=== PATIENT | female | born 1965 | race African-American/Black ===

== ENCOUNTER 2018-01-15 04:48 | Emergency (ER) | payer BC ==
[2018-01-15 04:58] VITALS: BP 127/84
--- NOTE | 2018-01-15 07:49 | EDM.PDOC ---
ED HPI GENERAL MEDICAL PROBLEM - General Chief Complaint: ENT Problem Stated Complaint: EAR BLEEDING Time Seen by Provider: 01/15/18 05:00 Source of Information: Reports: Patient - History of Present Illness Onset: Today - Related Data Allergies Allergy/AdvReac Type Severity Reaction Status Date / Time latex Allergy Itching Verified 01/15/18 04:59 Home Meds: Home Meds Acetaminophen/oxyCODONE [Percocet 325-5 MG] 2 tab PO Q4H PRN #30 tablet [Rx] Docusate Sodium [Colace] 100 mg PO BID PRN #30 cap 07/22/14 [Rx] Ibuprofen [Motrin] 600 mg PO Q4H PRN #30 tablet 07/22/14 [Rx] Aspirin 1 tab PO DAILY 01/15/18 [History] Dulaglutide [Trulicity] 1.5 mg SQ WEEKLY 01/15/18 [History] SitaGLIPtin [Januvia] 50 mg PO BID 01/15/18 [History] Past Medical History Cardiovascular History: Reports: High Cholesterol 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: Endocrine/Metabolic History: Reports: IDDM - Past Surgical History Female Surgical History: Reports: Section Social & Family History - Tobacco Use Smoking Status *Q: Never Smoker - Caffeine Use Caffeine Use: Reports: None - Recreational Drug Use Recreational Drug Use: No ED ROS ENT - Review of Systems Review Of Systems: See Below Constitutional: Reports: No Symptoms HEENT: Reports: No Symptoms Respiratory: Reports: No Symptoms Endocrine: Reports: No Symptoms GI/Abdominal: Reports: No Symptoms : Reports: No Symptoms Musculoskeletal: Reports: No Symptoms Skin: Reports: No Symptoms Neurological: Reports: No Symptoms Psychiatric: Reports: No Symptoms Hematologic/Lymphatic: Reports: No Symptoms Immunologic: Reports: No Symptoms ED EXAM, ENT - Physical Exam Exam: See Below Course - Vital Signs Last Recorded V/S: Last Vital Signs Temp 37.6 C 01/15/18 04:54 Pulse 107 H 01/15/18 04:54 Resp 18 01/15/18 04:54 BP 127/84 01/15/18 04:54 Pulse Ox 98 01/15/18 04:54 - Orders/Labs/Meds Labs: Laboratory Tests 01/15/18 01/15/18 01/15/18 Range/Units 05:00 05:00 05:00 WBC 9.26 (3.98-10.04) K/mm3 RBC 4.87 (3.98-5.22) M/mm3 Hgb 13.4 (11.2-15.7) gm/L Hct 39.4 (34.1-44.9) % MCV 80.9 (79.4-94.8) fl MCH 27.5 (25.6-32.2) pg MCHC 34.0 (32.2-35.5) g/dl RDW Std Deviation 40.9 (36.4-46.3) fL Plt Count 391 H (182-369) K/mm3 MPV 9.4 (9.4-12.3) fl Neut % (Auto) 53.4 (34.0-71.1) % Lymph % (Auto) 39.2 (19.3-51.7) % [place] % (Auto) 6.3 (4.7-12.5) % Eos % (Auto) 0.6 L (0.7-5.8) Baso % (Auto) 0.2 (0.1-1.2) % Neut # (Auto) 4.94 (1.56-6.13) K/mm3 Lymph # (Auto) 3.63 (1.18-3.74) K/mm3 [place] # (Auto) 0.58 H (0.24-0.36) K/mm3 Eos # (Auto) 0.06 (0.04-0.36) K/mm3 Baso # (Auto) 0.02 (0.01-0.08) K/mm3 PT 10.6 (9.5-12.1) SECONDS INR 0.97 APTT 27 (24-31) SECONDS POC Glucose (70-105) mg/dL 01/15/18 Range/Units 05:22 WBC (3.98-10.04) K/mm3 RBC (3.98-5.22) M/mm3 Hgb (11.2-15.7) gm/L Hct (34.1-44.9) % MCV (79.4-94.8) fl MCH (25.6-32.2) pg MCHC (32.2-35.5) g/dl RDW Std Deviation (36.4-46.3) fL Plt Count (182-369) K/mm3 MPV (9.4-12.3) fl Neut % (Auto) (34.0-71.1) % Lymph % (Auto) (19.3-51.7) % [place] % (Auto) (4.7-12.5) % Eos % (Auto) (0.7-5.8) Baso % (Auto) (0.1-1.2) % Neut # (Auto) (1.56-6.13) K/mm3 Lymph # (Auto) (1.18-3.74) K/mm3 [place] # (Auto) (0.24-0.36) K/mm3 Eos # (Auto) (0.04-0.36) K/mm3 Baso # (Auto) (0.01-0.08) K/mm3 PT (9.5-12.1) SECONDS INR APTT (24-31) SECONDS POC Glucose 124 H (70-105) mg/dL Departure - Departure Time of Disposition: 07:37 Disposition: Home, Self-Care 01 Condition: Good Clinical Impression: Laceration of ear - Discharge Information *PRESCRIPTION DRUG MONITORING PROGRAM REVIEWED*: Not Applicable *COPY OF PRESCRIPTION DRUG MONITORING REPORT IN PATIENT DINO: Not Applicable Instructions: General Headache Without Cause, Laceration Care, Adult Referrals: PCP,Not In Area [Primary Care Provider] - Forms: ED Department Discharge Additional Instructions: May resume usual activity. Follow up with primary care physician as needed. Return to ER if symptoms worsen.
--- NOTE | 2018-01-15 12:33 | ER ---
REASON FOR EMERGENCY ROOM ADMISSION: Bleeding from left ear. HISTORY: This 52-year-old woman awoke in the middle of the night with a sensation of something wet on the left side of her ear. She got up to go to the bathroom and came back and saw approximately a 50 cent size spot of blood on her pillow. She did not experience any pain and has no history of ear problems whatsoever except perhaps the otitis media as a child. She denies any trauma or the use of Q-tips or anything. She went back to sleep and turned her pillow over and when she woke up again this morning, she had another spot of blood on her pillow and was concerned that the blood was coming from her ear. Because this was alarming to her, she came to the emergency room to have it checked out. The patient denies any headache or discomfort, and as mentioned above, there has not been any instrumentation done on her ear. PAST MEDICAL HISTORY: Reviewed. See EMR. She has history of type 2 diabetes, for which she takes Januvia and Trulicity. She also takes aspirin and ibuprofen as needed. ALLERGIES: Latex. REVIEW OF SYSTEMS: All pertinent positives and negatives as listed in the HPI. PHYSICAL EXAMINATION: GENERAL: Reveals a pleasant woman in no acute distress. VITAL SIGNS: Her blood pressure is 127/84, she is afebrile, pulse of 107, O2 sats 98%. HEENT: Head is normocephalic. Her external ear on the earlobe has a 5 mm transversely oriented very superficial laceration that appears almost like a paper cut. It is below where her normal piercing is for her earrings. There is some drop or two of blood that was oozing from it while she was in the emergency room. This appears identical to a paper cut as I mentioned above. Examination of both ears reveals normal external canals. The TMs appear normal. I see no evidence of any perforation. Oropharynx is normal. NECK: No adenopathy. CHEST: Clear to auscultation. CARDIAC: Regular rate without murmur. SKIN: No evidence of ecchymoses or purpura. No rashes. LABORATORY DATA: She had a CBC and her platelet count is actually slightly elevated. Her PT, INR, and PTT are all within normal limits. IMPRESSION: Superficial laceration, left earlobe. I gave her recommendations regarding general care of this. I assured her that I do not feel it came from the middle ear or the ear canal at all. She felt somewhat embarrassed by this, but all questions were answered. PAUL /[id number]
== END 2018-01-15 07:47 | disposition home or self-care (01) ==
LOC: JD.ED 04:48
DX: S01.312A Laceration without foreign body of left ear, initial encounter (principal); Z91.040 Latex allergy status; Z79.82 Long term (current) use of aspirin; Z79.899 Other long term (current) drug therapy; E11.9 Type 2 diabetes mellitus without complications; X58.XXXA Exposure to other specified factors, initial encounter
CPT/HCPCS: 36415; 82962; 85025; 85610; 85730; 99282; 99283

== ENCOUNTER 2019-02-26 12:00 | Emergency (ER) | payer BC ==
[2019-02-26] MEDS ORDERED: Sodium Chloride 0.9% 10 ML Syringe FLUSH PRN (12:43)
--- NOTE | 2019-02-26 12:51 | EDM.PDOC ---
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 The patient presented to the walk-in clinic for management, but was subsequently sent here for further evaluation. Patient states that around 2 or 3 this morning she was awakened from a sleep with a feeling of great discomfort in her chest and she was aware that her heart was beating really fast. She was unable to get a pulse rate, but states that it was " really fast". She notes that she had some mild shortness of breath when she took deep breaths during this time. She thought that this lasted for around 3 or 4 hours. During this time she got out of bed went to the bathroom a couple times, and states she had a few loose bowel movements during these episodes, and then went and sat in her easy chair, and the fast heart rate just resolved itself on its own. Patient states she has had issues in the past where she feels her heart beating fast, but she normally drinks a little bit of water and it resolves itself. She notes she felt as if she was going to . Her primary care provider is Lia Hernandez out of [place] in [place]. The patient has a history of diabetes, she states that her sugars were kind of follow replaced this morning, so she did not take her regular medications. She notes she does take an 81 mg aspirin daily before bed for heart health. The patient is not complaining of any sort of fast heart rate at this time, and has no other complaints at this time. She states that she was nervous about getting her heart evaluated as her parents are both from cancer. 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 Denies: Blood Pressure Problem, Edema, Lightheadedness Endocrine: Reports: No Symptoms GI/Abdominal: Reports: Diarrhea ( a couple loose stools). Denies: Nausea, Vomiting : Reports: No Symptoms Musculoskeletal: Reports: No Symptoms Skin: Reports: No Symptoms Neurological: Reports: No Symptoms Psychiatric: Reports: No Symptoms Hematologic/Lymphatic: Reports: No Symptoms ED EXAM, GENERAL - Physical Exam Exam: See Below Exam Limited By: No Limitations General Appearance: Alert, WD/WN, No Apparent Distress Eye Exam: Bilateral Eye: EOMI, Normal Inspection, PERRL Throat/Mouth: Normal Inspection, Normal Lips, Normal Teeth, Normal Gums, Normal Oropharynx, Normal Voice, No Airway Compromise Head: Atraumatic, Normocephalic Neck: Normal Inspection Respiratory/Chest: No Respiratory Distress, Lungs Clear, Normal Breath Sounds, No Accessory Muscle Use, Chest Non-Tender Cardiovascular: Normal Peripheral Pulses, Regular Rate, Rhythm, No Edema, No Murmur Peripheral Pulses: 3+: Radial (L), Radial (R) GI/Abdominal: Normal Bowel Sounds, Soft, Non-Tender, No Distention, No Mass Extremities: Normal Inspection, Normal Capillary Refill Neurological: Alert, Oriented, Normal Cognition, No Motor/Sensory Deficits Psychiatric: Normal Affect, Normal Mood, Anxious (just mildly anxious about fast heart rate.) Skin Exam: Warm, Dry, Intact, Normal Color, No Rash EKG INTERPRETATION EKG Date: 02/26/19 Time: 12:29 Rhythm: NSR Rate (Beats/Min): 89 [place]: Normal P-Wave: Present QRS: Normal ST-T: Normal QT: Normal Comparison: NA - No Prior EKG EKG Interpretation Comments: No acute ischemic changes noted. This was reviewed by Dr. Benoit and myself. Course - Vital Signs Last Recorded V/S: Last Vital Signs Temp 98.1 F 02/26/19 12:15 Pulse 98 02/26/19 12:15 Resp 20 02/26/19 12:15 BP 129/86 02/26/19 12:15 Pulse Ox 98 02/26/19 12:15 - Orders/Labs/Meds Orders: Active Orders 24 hr Category Date Time Status EKG Documentation Completion [RC] ASDIRECTED Care 02/26/19 12:10 Active Holter Monitor 48 Hours [RC] .PRN Care 02/26/19 13:58 Ordered Peripheral IV Care [RC] . DIRECTED Care 02/26/19 12:43 Ordered PRO B-TYPE NATRIUR PEPT,BNPPRO [CHEM] Stat Lab 02/26/19 12:42 Ordered Sodium Chloride 0.9% [Saline Flush] Med 02/26/19 12:43 Ordered 10 ml FLUSH ASDIRECTED PRN Peripheral IV Insertion Adult [OM.PC] Stat Oth 02/26/19 12:43 Ordered EKG 12 Lead [EK] Stat Ther 02/26/19 12:10 Ordered Medication Orders Sodium Chloride (Saline Flush) 10 ml FLUSH ASDIRECTED PRN PRN Reason: Keep Vein Open Labs: Laboratory Tests 02/26/19 02/26/19 02/26/19 Range/Units 12:23 12:25 12:25 WBC 7.22 (3.98-10.04) K/mm3 RBC 5.30 H (3.98-5.22) M/mm3 Hgb 14.3 (11.2-15.7) gm/dl Hct 42.6 (34.1-44.9) % MCV 80.4 (79.4-94.8) fl MCH 27.0 (25.6-32.2) pg MCHC 33.6 (32.2-35.5) g/dl RDW Std Deviation 43.1 (36.4-46.3) fL Plt Count 467 H (182-369) K/mm3 MPV 9.8 (9.4-12.3) fl Neut % (Auto) 61.1 (34.0-71.1) % Lymph % (Auto) 33.1 (19.3-51.7) % [place] % (Auto) 5.3 (4.7-12.5) % Eos % (Auto) 0.1 L (0.7-5.8) Baso % (Auto) 0.3 (0.1-1.2) % Neut # (Auto) 4.41 (1.56-6.13) K/mm3 Lymph # (Auto) 2.39 (1.18-3.74) K/mm3 [place] # (Auto) 0.38 H (0.24-0.36) K/mm3 Eos # (Auto) 0.01 L (0.04-0.36) K/mm3 Baso # (Auto) 0.02 (0.01-0.08) K/mm3 PT 10.7 (9.7-12.0) SECONDS INR 0.98 APTT 26 (22-31) SECONDS Sodium (136-145) mEq/L Potassium (3.5-5.1) mEq/L Chloride (98-107) mEq/L Carbon Dioxide (21-32) mEq/L Anion Gap (5-15) BUN (7-18) mg/dL Creatinine (0.55-1.02) mg/dL Est Cr Clr Drug Dosing mL/min Estimated GFR (MDRD) (>60) mL/min BUN/Creatinine Ratio (14-18) Glucose (74-106) mg/dL POC Glucose 128 H (70-105) mg/dL Calcium (8.5-10.1) mg/dL Magnesium (1.8-2.4) mg/dl Total Bilirubin (0.2-1.0) mg/dL AST (15-37) U/L ALT (14-59) U/L Alkaline Phosphatase (46-116) U/L Troponin I (0.00-0.056) ng/mL Total Protein (6.4-8.2) g/dl Albumin (3.4-5.0) g/dl Globulin gm/dL Albumin/Globulin Ratio (1-2) 02/26/19 Range/Units 12:25 WBC (3.98-10.04) K/mm3 RBC (3.98-5.22) M/mm3 Hgb (11.2-15.7) gm/dl Hct (34.1-44.9) % MCV (79.4-94.8) fl MCH (25.6-32.2) pg MCHC (32.2-35.5) g/dl RDW Std Deviation (36.4-46.3) fL Plt Count (182-369) K/mm3 MPV (9.4-12.3) fl Neut % (Auto) (34.0-71.1) % Lymph % (Auto) (19.3-51.7) % [place] % (Auto) (4.7-12.5) % Eos % (Auto) (0.7-5.8) Baso % (Auto) (0.1-1.2) % Neut # (Auto) (1.56-6.13) K/mm3 Lymph # (Auto) (1.18-3.74) K/mm3 [place] # (Auto) (0.24-0.36) K/mm3 Eos # (Auto) (0.04-0.36) K/mm3 Baso # (Auto) (0.01-0.08) K/mm3 PT (9.7-12.0) SECONDS INR APTT (22-31) SECONDS Sodium 139 (136-145) mEq/L Potassium 3.9 (3.5-5.1) mEq/L Chloride 104 (98-107) mEq/L Carbon Dioxide 27 (21-32) mEq/L Anion Gap 11.9 (5-15) BUN 9 (7-18) mg/dL Creatinine 0.6 (0.55-1.02) mg/dL Est Cr Clr Drug Dosing 87.73 mL/min Estimated GFR (MDRD) > 60 (>60) mL/min BUN/Creatinine Ratio 15.0 (14-18) Glucose 139 H (74-106) mg/dL POC Glucose (70-105) mg/dL Calcium 9.4 (8.5-10.1) mg/dL Magnesium 1.6 L (1.8-2.4) mg/dl Total Bilirubin 0.6 (0.2-1.0) mg/dL AST 18 (15-37) U/L ALT 30 (14-59) U/L Alkaline Phosphatase 98 (46-116) U/L Troponin I < 0.017 (0.00-0.056) ng/mL Total Protein 7.5 (6.4-8.2) g/dl Albumin 3.6 (3.4-5.0) g/dl Globulin 3.9 gm/dL Albumin/Globulin Ratio 0.9 L (1-2) Meds: Medications Generic Name Dose Route Start Last Admin Trade Name Freq PRN Reason Stop Dose Admin Sodium Chloride 10 ml 02/26/19 12:43 Saline Flush FLUSH ASDIRECTED PRN Keep Vein Open - Re-Assessments/Exams Free Text/Narrative Re-Assessment/Exam: 02/26/19 12:52 Patient presents to the ED for evaluation of an elevated heart rate that awakened her from rest. As she is not having any symptoms right now, it is hard to tell exactly what was going on with her at that time. Have ordered an EKG, chest x-ray, CBC, CMP, magnesium, BNP, PT INR, PTT, troponin for initial evaluation will likely send the patient home with a 48 Holter monitor and have her follow up with her primary care physician in [place]. If time allows I will try to consult her family practice physician, as she requested. Patient's EKG is demonstrating normal sinus rhythm at a heart rate of 89 bpm. 02/26/19 13:44 Patient's laboratory evaluation is done, and demonstrates no acute abnormalities at this time. Her troponin is negative, chest x-ray is suggestive of possible cardiomegaly, however this was a portable x-ray, not sure if is just magnification due to that. Official radiology read is pending. At this time will likely have to send her home with a 48 hour Holter monitor and have her follow-up with her regular care provider for further management. 02/26/19 14:01 Radiology confirms normal chest x-ray. Will be discharged home with a 48 hour Holter monitor, I did call and make a follow-up appointment with Dr. Hernandez for March 10 3 PM in the afternoon. Patient can change the appointment if this time does not work for her. Departure - Departure Time of Disposition: 14:01 Disposition: Home, Self-Care 01 Condition: Fair Clinical Impression: Palpitations Instructions: Ambulatory Cardiac Monitoring, Palpitations, [id number] Referrals: PCP,Unknown [Primary Care Provider] - Forms: ED Department Discharge Additional Instructions: You were evaluated in the ED today regarding your fast heart rate at home. Your cardiac workup in the ER done today was within normal limits. There are no acute ischemic changes at this time. You have been sent home with a 48-hour Holter monitor to monitor your cardiac rhythm for the next 48 hours. You will need to return this to our emergency department when the 48 hour time frame is done. I have scheduled you an appointment with your primary care physician, Dr. Hernandez , at the [facility] in [place] on March 10 at 3 PM central time. The telephone number [phone], you may call to change the time of this appointment if this does not work for your scheduled. You may need to call our hospital [phone] sometime later next week to check on the report of your Holter monitor, and have this faxed to Dr. Hernandez's office for your appointment. Please return to the ED at any time if your symptoms change or worsen. - My Orders Last 24 Hours: My Active Orders 02/26/19 12:10 EKG Documentation Completion [RC] ASDIRECTED EKG 12 Lead [EK] Stat 02/26/19 12:42 PRO B-TYPE NATRIUR PEPT,BNPPRO [CHEM] Stat 02/26/19 12:43 Peripheral IV Care [RC] . DIRECTED Sodium Chloride 0.9% [Saline Flush] 10 ml FLUSH ASDIRECTED PRN Peripheral IV Insertion Adult [OM.PC] Stat 02/26/19 13:58 Holter Monitor 48 Hours [RC] .PRN - Assessment/Plan Last 24 Hours: My Active Orders 02/26/19 12:10 EKG Documentation Completion [RC] ASDIRECTED EKG 12 Lead [EK] Stat 02/26/19 12:42 PRO B-TYPE NATRIUR PEPT,BNPPRO [CHEM] Stat 02/26/19 12:43 Peripheral IV Care [RC] . DIRECTED Sodium Chloride 0.9% [Saline Flush] 10 ml FLUSH ASDIRECTED PRN Peripheral IV Insertion Adult [OM.PC] Stat 02/26/19 13:58 Holter Monitor 48 Hours [RC] .PRN
--- NOTE | 2019-02-26 13:55 | CR ---
Chest: Portable view of the chest was obtained. Comparison: No prior chest x-ray. Heart size and mediastinum are normal for portable technique. Lungs are clear. Bony structures are grossly intact. Impression: 1. Nothing acute is seen on portable chest x-ray. Diagnostic code #1
[2019-02-26 15:49] VITALS: BP 113/72; PULSE 87
== END 2019-02-26 15:12 | disposition home or self-care (01) ==
LOC: JD.ED 12:00
DX: R00.2 Palpitations (principal); E78.00 Pure hypercholesterolemia, unspecified; E11.9 Type 2 diabetes mellitus without complications; Z91.040 Latex allergy status; Z79.82 Long term (current) use of aspirin; Z79.899 Other long term (current) drug therapy
CPT/HCPCS: 36415; 71045; 71045-26; 80053; 82962; 83735; 83880; 84484; 85025; 85610; 85730; 93005; 93225; 93226; 99285-25